=== PATIENT | female | born 1970 | race Caucasian/White ===

== ENCOUNTER 2024-11-13 20:42 | Emergency (ER) | payer BC ==
[~2024-11-13] VITALS: Ht 165.1 cm; Wt 59.0 kg
[2024-11-13] MEDS ORDERED: COZAAR25 MG (21:16)
[2024-11-13] MEDS ORDERED: 0.9 % SODIUM CHLORIDE 1,000 ML IV SCH (22:00)
[2024-11-13] MEDS ORDERED: ONDANSETRON HCL 2 MG/ML VIAL IV ONE (22:00)
[2024-11-13] MEDS ORDERED: FAMOTIDINE/PF 20 MG/2 ML VIAL IV PUSH ONE (22:00)
[2024-11-13] MEDS ORDERED: FAMOTIDINE/PF 20 MG/2 ML VIAL ONE (22:21)
[2024-11-13] MEDS ORDERED: ONDANSETRON HCL 2 MG/ML VIAL ONE (22:21)
[2024-11-14] MEDS ORDERED: PROMETHAZINE HCL 50 MG/ML AMPUL IM ONE ×2 (00:02→00:15)
[2024-11-14] MEDS ORDERED: PEPCID40 MG PO (01:10)
[2024-11-14] MEDS ORDERED: PHENERGAN25 MG PO (01:10)
== END 2024-11-14 01:15 ==
LOC: ER 20:42
DX: R11.10 Vomiting, unspecified (principal); I10 Essential (primary) hypertension; Z88.0 Allergy status to penicillin; Z88.5 Allergy status to narcotic agent